=== PATIENT | female | born 1935 | race Caucasian/White ===

== ENCOUNTER 2016-11-15 08:06 | Emergency (ER) | payer MEDICARE, BC ==
[~2016-11-15 08:06] MED LIST: ADULT ASPIRIN81 MG PO; CELEXA10 MG PO; LIPITOR10 MG PO; NITROSTAT0.4 MG SL; PRILOSEC20 MG PO; RESTORIL15 MG PO; TENORMIN50 MG PO; UNICOMPLEX-M1 TAB PO
[2016-11-15] MEDS ORDERED: TENORMIN50 M1 PO (08:18)
[2016-11-15] MEDS ORDERED: COCONUT OIL1000 M1 PO (08:19)
[2016-11-15] MEDS ORDERED: ATIVAN0.5 M1 PO (08:19)
[2016-11-15] MEDS ORDERED: FISH OIL 11000 MG/CA PO (08:19)
[2016-11-15] MEDS ORDERED: GINKGO PO (08:19)
[2016-11-15] MEDS ORDERED: LIPITOR40 M1 PO (08:19)
[2016-11-15] MEDS ORDERED: COZAAR50 M1 PO (08:20)
[2016-11-15] MEDS ORDERED: MAGNESIUM500 MG PO (08:20)
[2016-11-15] MEDS ORDERED: NAMENDA10 M1 PO (08:20)
[2016-11-15] MEDS ORDERED: ZOLOFT100 M1 PO (08:20)
[2016-11-15] MEDS ORDERED: XARELTO20 M1 PO (08:21)
[2016-11-15] MEDS ORDERED: VITAMIN C500 M4 CH (08:21)
[2016-11-15] MEDS ORDERED: MAPAP PM PO (08:22)
[2016-11-15] MEDS ORDERED: ACETAMINOPHEN325 M2 PO (08:22)
[2016-11-15] MEDS ORDERED: LOPERAMIDE2 M2 PO (08:23)
[2016-11-15] MEDS ORDERED: MILK OF MAGNESIA PO (08:24)
[2016-11-15] MEDS ORDERED: RULOX SUSPENSI355 M2 PO (08:24)
[2016-11-15 09:45] LABS: BASO % 0.6 % (0-2); BASO ABSOLUTE COUNT 0.1 tho/cmm (0.0-0.2); EOS % 2.1 % (0-7); EOSINOPHIL ABSOLUTE COUNT 0.2 tho/cmm (0.0-0.7); HCT-HEMATOCRIT 41.1 % (34.0-49.0); HGB-HEMOGLOBIN 13.8 gm/dl (12.0-15.5); IMMATURE GRANULOCYTES ABSOLUTE 0.02 tho/cmm (0-0.03); IMMATURE GRANULOCYTES PERCENT 0.2 % (0-0.3); LYMPH % 17.5 % (20-45); LYMPH ABSOLUTE COUNT 1.4 tho/cmm (0.8-4.5); MCH (MEAN CORPUSCULAR HGB) 31.5 pg (28.0-32.0); MCHC MEAN CORPUSCULAR HGB CONC 33.6 % (32.0-36.0); MCV (MEAN CELL VOLUME) 93.8 fl (82.0-96.0); MEAN PLATELET VOLUME 10.2 cmc (9.4-12.4); MONO % 7.8 % (0-12); MONOCYTE ABSOLUTE COUNT 0.6 tho/cmm (0.0-1.2); NEUTROPHIL ABSOLUTE COUNT 5.8 tho/cmm (1.6-8.0); NEUTROPHIL-AUTOMATED 5.8 tho/cmm (1.6-8.0); NEUTROPHILS % 71.8 % (40-80); PLATELET COUNT 144 tho/cmm (150-450); RED BLOOD COUNT 4.38 mil/cmm (4.00-5.20); RED CELL DISTRIBUTION WIDTH 14.4 % (12.4-16.4)
[2016-11-15 09:51] LABS: INR 1.2 INR (0.9-1.1); PROTHROMBIN TIME 13.7 SECONDS (9.0-13.6)
[2016-11-15 09:57] LABS: ANION GAP 12 mmol/L (0-20); BLOOD UREA NITROGEN 17 mg/dl (6-24); CARBON DIOXIDE-VENOUS 26 mmol/L (22-32); CHLORIDE 109 mmol/l (96-110); GLUCOSE 140 mg/dL (70-110); SODIUM 143 mmol/L (135-145); eGFR VALUE FOR BLACK >90 mL/Min
[2016-11-15 09:57] LABS: URINE APPEARANCE CLEAR; URINE BILIRUBIN NEGATIVE (NEG); URINE BLOOD MODERATE (NEG); URINE COLOR YELLOW; URINE GLUCOSE (UA) NEGATIVE (NEG); URINE KETONE NEGATIVE (NEG); URINE LEUKOCYTE ESTERASE NEGATIVE (NEG); URINE NITRITE NEGATIVE (NEG); URINE PROTEIN NEGATIVE (NEG); URINE SPECIFIC GRAVITY 1.025 (1.003-1.030)
[2016-11-15 10:04] LABS: URINE EPITHELIAL CELLS N /[HPF] (0-10); URINE RBC 0-2 /[HPF] (0-5); URINE WBC 0-2 /[HPF] (0-5)
== END 2016-11-15 13:11 ==
LOC: EDMED 08:06
PROVIDERS: Emergency Medicine
DX: S22.068A Other fracture of T7-T8 thoracic vertebra, initial encounter for closed fracture (principal); S00.93XA Contusion of unspecified part of head, initial encounter; M47.016 Anterior spinal artery compression syndromes, lumbar region; G30.9 Alzheimer's disease, unspecified; F02.80 Dementia in other diseases classified elsewhere, unspecified severity, without behavioral disturbance, psychotic disturbance, mood disturbance, and anxiety; I10 Essential (primary) hypertension; Z79.899 Other long term (current) drug therapy; X58.XXXA Exposure to other specified factors, initial encounter
CPT/HCPCS: G8978-GP-CI; G8979-GP-CI; G8980-GP-CI